=== PATIENT | female | born 1990 | race Caucasian/White ===

== ENCOUNTER → 2024-11-09 08:16 | Outpatient (REF) | payer OTHER, SELFPAY | LOC: HWRAD 08:16 | PROVIDERS: ATTENDING PHYSICIAN Otolaryngology Otolaryngology/Facial Plastic Surgery; FAMILY PHYSICIAN Family Medicine | DX: J32.0 Chronic maxillary sinusitis (principal) | CPT/HCPCS: 70486 ==

== ENCOUNTER 2025-10-27 20:53 | Emergency (ER) | payer OTHER, SELFPAY ==
[2025-10-27 20:56] VITALS: BP 139/83
[2025-10-27 22:06] VITALS: BP 103/68
[2025-10-27 23:07] VITALS: BP 115/59
--- NOTE | 2025-10-27 23:10 | ED.GENMED ---
History of Present Illness
General
Chief Complaint: Problems
Source: patient and spouse
Exam Limitations: none
Time Seen by Provider: 10/27/25 21:27
Nursing documentation reviewed up to this point in time: agreed with
History of Present Illness
History of Present Illness:
35-year-old female, at an estimated 8 weeks gestation who presents after episode of pelvic cramping. Patient states that she was at home earlier this evening after injecting her scheduled progesterone/estrogen shots. She then had relatively
severe cramping in her lower pelvic region with some radiation in her back. Cramping persisted prompting visit the emergency department, however resolved while in the waiting room.
She states that she does sometimes get pelvic cramping after her injections however has never had it to this severity. She denies any associated vaginal bleeding or loss of fluids.
She has been following with Rod Hernandez during this round of IVF. She has had multiple ultrasounds documenting an intrauterine . Her next follow-up is scheduled on Wednesday.
Review of Systems
Review of Systems
Allergies reviewed?: Yes
All Other Systems: ROS reviewed and negative except as documented in HPI and ROS
Phy Exam
Physical Exam
Physical Exam:
Vitals: Patient's vital signs are stable. Afebrile
General: Patient is somewhat anxious appearing
Skin: Warm and dry, no rashes or lesions
Head: Normocephalic, atraumatic
Throat: Protecting airway
Neck: Normal ROM, no cervical spine tenderness
Cardiac: Regular rate
Pulm: No apparent respiratory distress
Abdomen: Soft and nontender
Extremities: No evidence of cyanosis or edema
Neuro: Grossly intact
Psychiatric: Normal affect.
Course
Orders/Labs/Results
Orders:
Orders
10/27/25 21:50
1st Trimester US [US 1st Trimester] Urgent
Comment:
Reason For Exam: cramping early
Vital Signs
Initial and Last Documented VS:
Initial Vital Signs
Temp Pulse Resp BP Pulse Ox
98.6 F 74 16 139/83 100
10/27/25 20:56 10/27/25 20:56 10/27/25 20:56 10/27/25 20:56 10/27/25 20:56
Last Documented Vital Signs
Temp Pulse Resp BP Pulse Ox
98.6 F 72 14 115/59 98
10/27/25 20:56 10/27/25 23:45 10/27/25 23:45 10/27/25 23:07 10/27/25 23:45
Information
Weeks gestation: Weeks: (8 weeks, 1 day)
Location: Location: (Intrauterine)
MDM/Problems Addressed
Differential Diagnosis Includes:
Not limited to: normal , threatened , missed , ectopic , etc
MDM/Problems Addressed:
35-year-old at an estimated 8 weeks gestation presenting after episode of pelvic cramping this evening. Resolved by arrival to ED. via IVF and had just administered IM progesterone/estrogen prior to cramping. No bleeding or loss of
fluids. She has had multiple US documenting an IUP.
Patient hemodynamically stable. On exam, she is someone anxious appearing however in no distress. Abdomen benign.
There have been no episodes of bleeding. No indication for labs today. Will obtain ultrasound for reassurance.
Update: Ultrasound reveals live intrauterine , estimating 8 weeks, 1 day with heart rate of 152bpm.
Did discuss w/ patient that we are unable to determine if this will definitely continue to be a successful however, findings reassuring today in the emergency department. Advised continued follow-up with fertility specialist as well as
[facility] for continued care. Return precautions discussed.
Chronic conditions affecting care:
N/A
Acute Exacerbation and/or Progression of Chronic Illness:
N/A
*Radiology
Radiology exam reviewed: radiology read reviewed
*Pulse Oximetry
SaO2: 100
Oxygen Mode of Delivery: Room air
Patient hypoxic: no
*EKG
Interpreted by ED Provider?: NA
*Remote Sensing Scientist Interpretation
Rate: Remote Sensing Scientist- N/A
*Critical Care Note
Total Time (30-74mins, 75-104mins- exclusive of procedures): Not Applicable
ED Attending Note
-
Portions of this chart may have been created with voice recognition software.� Occasional wrong word or��sound alike� substitutions may have occurred due to the inherent limitations of voice recognition software.
Discharge Plan
Departure
Patient Disposition: Home (Routine Discharge)
Date of Disposition: 10/28/25
Time of Disposition: 00:14
Patient with high blood pressure during this ER visit?: Yes
Condition: Good
Covid-19: Not Applicable
Discharge Problem:
with suprapubic cramping, antepartum
Instructions: BLOOD PRESSURE
Prescriptions:
No Action
No Current Medications
0
Referrals:
Felicia Huynh MD [Family Provider, Family Practice]
Activity Restrictions/Additional Instructions:
RETURN TO THE EMERGENCY DEPARTMENT WITH ANY PERSISTENT/SEVERE ABDOMINAL CRAMPING, VAGINAL BLEEDING OR SPOTTING, LOSS OF FLUIDS, LIGHTHEADEDNESS/DIZZINESS OR SEVERE HEADACHE, WORSENING IN CURRENT SYMPTOMS, OR ANY OTHER CONCERNS
- As discussed�the ultrasound from the emergency department showed a live intrauterine with a heart rate of 154 bpm and a measurement of 8 weeks, 2 days.
- Please follow-up with your fertility doctor as scheduled on Wednesday for further evaluation and/for management
Monitor your symptoms closely and return to the emergency department with any acute worsening/new symptoms or any other concerns
Interventions
Interventions:
*Risk Screen - Suicide Last Done: 10/27/25 20:56
*General Assessment Last Done: 10/27/25 22:00
*Neglect/Abuse Screening Last Done: 10/27/25 20:56
*ED- Fall Risk Assessment Last Done: 10/27/25 22:00
*ED COVID-19 Vaccine History Last Done: 10/27/25 22:00
*ED Influenza Vaccine History Last Done: 10/27/25 22:00
*Nursing Disposition Last Done: 10/28/25 00:20
ED-Female Genitourinary Assessment Last Done: 10/27/25 22:00
Discharge Date and Time
Discharge Date/Time: 10/28/25 00:20
Print Language: [id number]
== END 2025-10-28 00:20 | disposition home or self-care (01) ==
LOC: EMR 20:53
PROVIDERS: EMERGENCY PHYSICIAN Emergency Medicine; FAMILY PHYSICIAN Family Medicine
DX: O26.891 Other specified pregnancy related conditions, first trimester (principal); R10.20 Pelvic and perineal pain unspecified side; O09.511 Supervision of elderly primigravida, first trimester; Z3A.08 8 weeks gestation of pregnancy
CPT/HCPCS: 99284; 76801